=== PATIENT | female | born 1935 | race Caucasian/White ===

== ENCOUNTER 2016-06-01 09:21 | Inpatient (IN) | payer MEDICARE, OTHER ==
--- NOTE | 2016-06-01 09:28 | ED PDOC ---
HPI: General Adult Time Seen by Provider: 06/01/16 09:24 Chief Complaint (Provider): shortness of breath History Per: Patient History/Exam Limitations: no limitations Additional Complaint(s): 80yo female w/ Hx asthma, anxiety brought by ALS for complaint of shortness of breath for 3-4 days, worse this morning. No cough, or chills. States she smokes whenever she is stressed, which is more often recently. ALS administered Solumedrol 125mg in the field after noting patient was tachypneic with rhonchi and wheezing. Patient denies history of intubations. PMD: Noah Maguire Past Medical History Reviewed: Historical Data, Nursing Documentation, Vital Signs Vital Signs: Last Vital Signs Temp 100.3 F H 06/01/16 09:29 Pulse 116 H 06/01/16 11:50 Resp 23 06/01/16 09:40 BP 115/65 06/01/16 09:40 Pulse Ox 99 06/01/16 09:40 - Medical History PMH: Alzheimer's Disease (Per son, early, undiagnosed), Anxiety, Asthma, COPD, Dementia, Depression, Emphysema, Fractures (left shoulder 2 yrs ago), HTN, Pancreatitis Denies: Diabetes, Hepatitis, Chronic Kidney Disease, Seizures, Sexually Transmitted Disease - Surgical History Surgical History: Appendectomy - Family History Family History: States: Unknown Family Hx - Social History Current smoker - smoking cessation education provided: Yes (2-3 cigarettes daily ) - Immunization History Hx Tetanus Toxoid Vaccination: Yes (3 weeks [employer]) Hx Influenza Vaccination: No Hx Pneumococcal Vaccination: No - Home Medications Home Medications: Ambulatory Orders Medication Instructions Recorded ALPRAZolam [Xanax] 1 mg PO TID 06/01/16 Albuterol Sulfate [Proair Hfa] 2 puff IH Q6H PRN 06/01/16 Fluticasone/Salmeterol 100/50 1 puff IH Q12H 06/01/16 [Advair Diskus 100/50] Lansoprazole [Prevacid] 30 mg PO DAILY 06/01/16 - Allergies Allergies/Adverse Reactions: Allergies Allergy/AdvReac Type Severity Reaction Status Date / Time Penicillins Allergy SWELLING Verified 09/07/15 11:39 shrimp Allergy SWELLING Verified 09/07/15 11:39 Review of Systems ROS Statement: Except As Marked, All Systems Reviewed And Found Negative Constitutional: Positive for: Fever. Negative for: Chills Respiratory: Positive for: Shortness of Breath Physical Exam - Reviewed Nursing Documentation Reviewed: Yes Vital Signs Reviewed: Yes - Physical Exam Appears: Positive for: Well, Non-toxic, No Acute Distress Head Exam: Positive for: ATRAUMATIC, NORMAL INSPECTION, NORMOCEPHALIC Skin: Positive for: Warm, Dry Eye Exam: Positive for: EOMI, PERRL Cardiovascular/Chest: Positive for: Regular Rate, Rhythm Respiratory: Positive for: Rhonchi (diffuse), Wheezing (diffuse), Respiratory Distress (mild) Gastrointestinal/Abdominal: Positive for: Normal Exam, Soft. Negative for: Tenderness Extremity: Positive for: Normal ROM Neurologic/Psych: Positive for: Alert, Oriented - Laboratory Results Result Diagrams: 06/01/16 09:52 06/01/16 09:52 - Critical Care Total Time (In Min): 30 Documented Critical Care: Time excludes all time spent performint seperately billable procedures Medical Decision Making Medical Decision Makin: EKG, CXR, labs, duoneb, magnesium sulfate IV, reassess 1112 patient is still tachypneic, tachycardic and hypoxic. Pneumonia noted on CXR. Will place on BiPAP for 1 hour and reassess respiratory status. Paging ICU secondary to tachypea, hypoxia, sepsis criteria, pneumonia, elderly age. [address] Stubbs ICU who will evaluate the patient. 1152: Case discussed with Dr. Ordonez who agrees with placement of patient in ICU. Disposition - Clinical Impression Clinical Impression: Respiratory distress, COPD (chronic obstructive pulmonary disease), Pneumonia, Sepsis - Patient ED Disposition Is Patient to be Admitted: No - Disposition Disposition Time: 11:30 Condition: CRITICAL - Pt Status Changed To: Hospital Disposition Of: Inpatient - Admit Certification Admit to Inpatient:: After my assessment, the patient will require hospitalization for at least two midnights. This is because of the severity of symptoms shown, intensity of services needed, and/or the medical risk in this patient being treated as an outpatient. - POA Core Measure Indicators: Pneumonia Additional Comments - Additional Comments Additional Comments: Scribe Attestation: Documented by Julio Higgins acting as a scribe for Kareen Mixon MD Provider Scribe Attestation: All medical record entries made by the Scribe were at my direction and personally dictated by me. I have reviewed the chart and agree that the record accurately reflects my personal performance of the history, physical exam, medical decision making, and the department course for this patient. I have also personally directed, reviewed, and agree with the discharge instructions and disposition.
[2016-06-01 09:32] VITALS: BMI 18.8
[2016-06-01] MEDS ORDERED: Albuterol-Ipratrop 3 mg / 0.5 (3 ml) UD INH STA (09:32)
[2016-06-01] MEDS ORDERED: Magnesium Sulfate 2 GM in Sodium Chloride 0.9% 100 ML IV STA (09:32)
[2016-06-01] MEDS ORDERED: Albuterol-Ipratrop 3 mg / 0.5 (3 ml) UD ONE (09:42)
[2016-06-01 10:01] LABS: BASO # 0.1 K/uL (0.0-0.2); BASO % 0.4 % (0.0-2.0); EOS # 0.4 K/uL (0.0-0.7); HEMATOCRIT 40.4 % (34.0-47.0); LYMPH # 1.5 K/uL (1.0-4.3); LYMPH % 7.7 % (20.0-40.0); MEAN CORPUSCULAR HEMOGLOBIN 31.3 pg (27.0-31.0); MEAN CORPUSCULAR HGB CONC 32.8 g/dL (33.0-37.0); MEAN PLATELET VOLUME 7.4 fl (7.2-11.7); MONO # 2.7 K/uL (0.0-0.8); MONO % 13.9 % (0.0-10.0); NEUT # 14.7 K/uL (1.8-7.0); PLATELET COUNT 330 K/uL (130-400); RED CELL DISTRIBUTION WIDTH 14.5 % (11.5-14.5); WHITE BLOOD COUNT 19.4 K/uL (4.8-10.8)
[2016-06-01 10:02] LABS: MEAN CELL VOLUME 95.3 fl (81.0-99.0)
[2016-06-01 10:12] LABS: BLOOD UREA NITROGEN 17 mg/dl (7-17); CALCIUM 9.2 mg/dL (8.4-10.2); CARBON DIOXIDE 30 mmol/L (22-30); CHLORIDE 102 mmol/L (98-107); GFR AFRICAN-AMERICAN > 60; GLUCOSE,RANDOM 150 mg/dL (65-105); POTASSIUM 5.2 MMOL/L (3.6-5.0); SODIUM 138 mmol/l (132-148)
[2016-06-01] MEDS ORDERED: Azithromycin 500 MG in Sodium Chloride 0.9% 250 ML IVPB STA (10:55)
[2016-06-01] MEDS ORDERED: Sodium Chloride 0.9% 1,000 ML IV STA (10:56)
--- NOTE | 2016-06-01 11:29 | RAD ---
PROCEDURE: CHEST RADIOGRAPH, 1 VIEW HISTORY: hx of asthma, sob COMPARISON: 07/05/2015 FINDINGS: LUNGS: New opacity at right lung base. Possible pneumonia. No other abnormal opacity elsewhere. PLEURA: Small right pleural effusion. No left pleural effusion. No pneumothorax. CARDIOVASCULAR: Normal. OSSEOUS STRUCTURES: Status post ORIF mid right humeral fracture. VISUALIZED UPPER ABDOMEN: Normal. OTHER FINDINGS: None. IMPRESSION: New right basilar opacity suspicious for pneumonia. Small right pleural effusion.
[2016-06-01 11:41] LABS: VENOUS BLOOD GAS BASE EXCESS 6.9 mmol/L (0.0-2.0); VENOUS BLOOD GAS PCO2 76 mmHg (40-60); VENOUS BLOOD PH 7.27 (7.32-7.43)
[2016-06-01 12:49] LABS: ABG ALLEN TEST YES; ARTERIAL BLOOD GAS HCO3 24.8 mmol/L (21-28); ARTERIAL BLOOD GAS PH 7.23 (7.35-7.45); ARTERIAL BLOOD GAS PO2 86 mm/Hg (80-100)
[2016-06-01] MEDS ORDERED: Sodium Chloride 0.9% 1,000 ML IV SCH ×2 (13:00→18:45)
[2016-06-01] MEDS: cefTRIAXone 2 GM in Sodium Chloride 0.9% 100 ML IVPB SCH (13:03)
[2016-06-01 13:49] LABS: BASOPHIL 1 % (0-2); EOSINOPHIL 2 % (0-7); NEUTROPHIL 78 % (42-75); TOTAL CELLS COUNTED 100
--- NOTE | 2016-06-01 17:03 | CP.CCUPN ---
CCU Subjective - Physician Review Events Since Last Encounter (Free Text): 06/01/16 18:06 The Patient was seen and examined at the bedside, Medical records reviewed, all clinical/lab/hemodynamic/radiographic data were reviewed and management issues were discussed and formulated, Events reviewed Pain issues, skin care, head of the bed elevation, GI/DVT prophylaxis, glycemic control were addressed. 80 years old F with multiple medical conditions including HTN, Anxiety, Asthma, COPD/ Emphysema, Dementia, Depression, Fractures (left shoulder 2 yrs ago), Pancreatitis and Alzheimer's Disease (Per son, early, undiagnosed), Who was brought by ALS for complaint of shortness of breath for 3-4 days, that gor worse this morning. Pt in respiratory distress with rhonchi and wheezing on exAM, ALS administered Solumedrol 125mg in the field In the ER, she had fever of 100.3, Tylenol was given and was started on IV Rocephin/Zithromx Noted to have Rhonchi, Wheezing (diffuse), and in mild Respiratory Distress, so ICU consult was called, Admitted to ICU, currently on BIPAP, feeling better, afebrile CCU Objective - Vital Signs / Intake & Output Vital Signs (Last 4 hours): Vital Signs Temp Pulse Resp BP Pulse Ox 06/01/16 16:34 105 H 06/01/16 14:44 98.5 F 103 H 20 102/56 L 96 06/01/16 14:35 115 H 06/01/16 13:30 98.5 F 103 H 20 102/56 L 96 - Physical Exam Physical Exam Limitations: Positive for: Clinical Condition Head: Positive for: Atraumatic, Normocephalic Pupils: Positive for: PERRL Extroacular Muscles: Positive for: EOMI Conjunctiva: Positive for: Normal. Negative for: Injected, Icteric Mouth: Positive for: Moist Mucous Membranes Pharnyx: Positive for: Normal. Negative for: ERYTHEMA Nose (Internal): Positive for: Normal Inspection Neck: Positive for: Normal Range of Motion Respiratory/Chest: Positive for: Respiratory Distress (MILD), Wheezes (diffuse) , Decreased Breath Sounds, Rhonchi, Tachypneic. Negative for: Rales, Retracting Cardiovascular: Positive for: Regular Rate and Rhythm, Normal S1, S2, Peripheal Pulses Present. Negative for: Murmurs, Irregular Rhythm Upper Extremity: Positive for: Normal Inspection, NORMAL PULSES, Capillary Refill < 2s. Negative for: Cyanosis, Edema Lower Extremity: Positive for: Normal Inspection, NORMAL PULSES, Capillary Refill < 2 s. Negative for: Edema, CALF TENDERNESS Neurological: Positive for: GCS=15, CN II-XII Intact, Speech Normal, Motor Func Grossly Intact, Normal Sensory Function Psychiatric: Positive for: Alert - Medications Active Medications: Active Medications Generic Name Dose Route Start Last Admin Trade Name Arunq PRN Reason Stop Dose Admin Ceftriaxone Sodium 2 gm/ 100 mls @ 100 mls/hr 06/02/16 09:00 06/01/16 13:03 Sodium Chloride IVPB 100 mls/hr DAILY JABARI Administration Vancomycin HCl 1 gm/ Sodium 250 mls @ 166.667 mls/hr 06/01/16 16:00 06/01/16 16 :42 Chloride IVPB 06/01/16 17:29 166.667 mls/hr ONCE ONE Administration - Patient Studies Lab Studies: Lab Studies 06/01/16 Range/Units 12:40 pCO2 70 H (35-45) mm/Hg pO2 86 (80-100) mm/Hg HCO3 24.8 (21-28) mmol/L ABG pH 7.23 L (7.35-7.45) ABG Total CO2 31.4 H (22-28) mmol/L ABG O2 Saturation 97.6 (95-98) % ABG Base Excess -0.1 (-2.0-3.0) mmol/L Best Test Yes ABG Potassium 4.9 (3.6-5.2) mmol/L A-a O2 Difference 112.0 mm/Hg Sodium 137.0 (132-148) mmol/L Chloride 106.0 (98-107) mmol/L Glucose 247 H (65-105) mg/dL Lactate 2.6 H (0.7-2.1) mmol/L FiO2 40.0 % Arterial Blood Potassium 4.9 (3.6-5.2) mmol/L Laboratory Results - last 24 hr 06/01/16 12:40 pCO2 70 H pO2 86 HCO3 24.8 ABG pH 7.23 L ABG Total CO2 31.4 H ABG O2 Saturation 97.6 ABG Base Excess -0.1 Best Test Yes ABG Potassium 4.9 A-a O2 Difference 112.0 Sodium 137.0 Chloride 106.0 Glucose 247 H Lactate 2.6 H FiO2 40.0 Arterial Blood Potassium 4.9 Assessment/Plan (1) CAP (community acquired pneumonia) Current Visit: Yes Status: Acute (2) COPD (chronic obstructive pulmonary disease) with emphysema Current Visit: No Status: Acute (3) COPD (chronic obstructive pulmonary disease) with chronic bronchitis Current Visit: No Status: Chronic Comment: (4) Alzheimer's dementia Current Visit: No Status: Chronic (5) Prophylactic measure Current Visit: No Status: Acute Comment: Protonix 40mg daily Heparin 5000 units SC Q 12H - Assessment and Plan (Free Text) Assessment: - - Admitted to the ICU for hemodynamic and respiratory monitoring - Continue meds, reviewed - IV Antibiotics with Rocephin and Zithromax - Continue home meds: Spiriva 18mcg inh daily, Advair Diskus 1 puff INH bid and Singulair 10mg PO HS - Bronchodilator Nebs x4optvt - Aggressive Pulmonary toilets - IV fluids with 0.9% NS at 50cc /H - Strict Is & Os - Solumedrol 40mg IVP Q 12 hour - Singular 10mg POqHS - GI/DVT PPx
--- NOTE | 2016-06-01 19:46 | CARD ---
APPROVED REPORT EKG Measurement Heart [id number] <Conclusion> Sinus tachycardia with fusion complexes Otherwise normal ECG
[2016-06-01] MEDS: methylPREDNISolone 40 MG in Sodium Chloride 0.9% 50 ML IVPB SCH (21:15)
[2016-06-01] MEDS: Fluticasone-Salmeterol 250-50mcg Diskus IH SCH (21:18)
--- NOTE | 2016-06-01 23:11 | CP.PCM.HP ---
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 Patient was treated with Solu Medrol , Duo Neb , BIPAP and AD to ICU. Patient is seen in ICU of BIPAP on NC for eating,then will return to BIPAP Denies cough , hemoptysis , recent travel. Smoker 6 cigarretes day for 43 yrs , COPD for 4-5 yrs, Patient at home on DuoNeb , Oxigen, Allergic Rhinitis for 4-5 yrs. Present on Admission - Present on Admission Any Indicators Present on Admission: No Review of Systems - Constitutional Constitutional: Other (neg) - EENT Eyes: Other (neg) Ears: Other (neg) Nose/Mouth/Throat: Dry Mouth - Cardiovascular Cardiovascular: Other (neg) - Respiratory Respiratory: Dyspnea, Dyspnea on Exertion, Wheezing, Chest Congestion - Gastrointestinal Gastrointestinal: Other (neg) - Genitourinary Genitourinary: Other (neg) - Musculoskeletal Musculoskeletal: Other (neg) - Integumentary Integumentary: Other - Neurological Neurological: Other (neg) - Psychiatric Psychiatric: Other (neg) - Endocrine Endocrine: Other (neg) - Hematologic/Lymphatic Hematologic: Other (neg) Past Patient History - Infectious Disease Hx of Infectious Diseases: None - Tetanus Immunizations Tetanus Immunization: Unknown - Past Medical History & Family History Past Medical History?: Yes - Past Social History Smoking Status: Former Smoker Alcohol: None Home Situation {Lives}: Alone - CARDIAC Hx Cardiac Disorders: Yes Hx Hypertension: Yes - PULMONARY Hx Respiratory Disorders: Yes Hx Asthma: Yes Hx Chronic Obstructive Pulmonary Disease (COPD): Yes Hx Emphysema: Yes - NEUROLOGICAL Hx Neurological Disorder: Yes Hx Alzheimer's Disease: Yes (Per son, early, undiagnosed) Hx Dementia: Yes Hx Seizures: No - HEENT Hx HEENT Problems: Yes (Allergic Rhinitis) Other/Comment: to see far and close - RENAL Hx Chronic Kidney Disease: No - ENDOCRINE/METABOLIC Hx Endocrine Disorders: No - HEMATOLOGICAL/ONCOLOGICAL Hx AIDS: No Hx Human Immunodeficiency Virus (HIV): No - INTEGUMENTARY Hx Dermatological Problems: No - MUSCULOSKELETAL/RHEUMATOLOGICAL Hx Musculoskeletal Disorders: Yes Hx Falls: No Hx Fractures: Yes (ORIF R humeral) - GASTROINTESTINAL Hx Gastrointestinal Disorders: Yes Hx Pancreatitis: Yes - GENITOURINARY/GYNECOLOGICAL Hx Genitourinary Disorders: No Hx Sexually Transmitted Disorders: No - PSYCHIATRIC Hx Psychophysiologic Disorder: No Hx Substance Use: No - SURGICAL HISTORY Hx Surgeries: Yes Hx Appendectomy: Yes Hx Orthopedic Surgery: Yes (ORIF R Shoulder) - ANESTHESIA Hx Anesthesia: Yes Hx Anesthesia Reactions: No Hx Malignant Hyperthermia: No Has any member of the family had a problem w/ anesthesia?: No Meds Allergies/Adverse Reactions: Allergies Allergy/AdvReac Type Severity Reaction Status Date / Time Penicillins Allergy SWELLING Verified 09/07/15 11:39 shrimp Allergy SWELLING Verified 09/07/15 11:39 Physical Exam - Constitutional Appears: Chronically Ill - Head Exam Head Exam: NORMAL INSPECTION - Eye Exam Eye Exam: PERRL - ENT Exam ENT Exam: Mucous Membranes Dry - Neck Exam Neck exam: Positive for: Normal Inspection - Respiratory Exam Respiratory Exam: Decreased Breath Sounds, Rhonchi, Wheezes Additional comments: xyphosis - Cardiovascular Exam Cardiovascular Exam: REGULAR RHYTHM - GI/Abdominal Exam GI & Abdominal Exam: Normal Bowel Sounds, Soft - Extremities Exam Extremities exam: Positive for: normal inspection - Back Exam Back exam: NORMAL INSPECTION - Neurological Exam Neurological exam: Alert, Oriented x3 Additional comments: no motor /sensory deficit - Psychiatric Exam Psychiatric exam: Anxious - Skin Skin Exam: Warm Results - Vital Signs Recent Vital Signs: Last Vital Signs Temp 97.9 F 06/01/16 20:00 Pulse 93 H 06/01/16 22:00 Resp 19 06/01/16 22:00 BP 90/49 L 06/01/16 22:00 Pulse Ox 98 06/01/16 22:00 - Labs Result Diagrams: 06/01/16 09:52 06/01/16 09:52 Labs: Laboratory Results - last 24 hr 06/01/16 12:40 pCO2 70 H pO2 86 HCO3 24.8 ABG pH 7.23 L ABG Total CO2 31.4 H ABG O2 Saturation 97.6 ABG Base Excess -0.1 Best Test Yes ABG Potassium 4.9 A-a O2 Difference 112.0 Sodium 137.0 Chloride 106.0 Glucose 247 H Lactate 2.6 H FiO2 40.0 Arterial Blood Potassium 4.9 Assessment & Plan (1) CAP (community acquired pneumonia) Status: Acute (2) Respiratory distress Status: Acute (3) COPD exacerbation Status: Acute (4) Allergic rhinitis Status: Chronic Priority: Medium - Assessment and Plan (Free Text) Plan: Continue Zithromax , Rocephin, Duo Neb , Singulair and rest of treatment
[2016-06-01 23:28] LABS: RBC URINE 7 /hpf (0-3); URINE BILIRUBIN NEGATIVE (NEGATIVE); URINE BLOOD NEGATIVE (NEGATIVE); URINE COLOR YELLOW (YELLOW); URINE GLUCOSE (UA) NEG (Normal); URINE KETONE TRACE mg/dL (NEGATIVE); URINE LEUKOCYTE ESTERASE NEG Leu/uL (Negative); URINE PROTEIN 100 mg/dL (NEGATIVE); URINE UROBILINOGEN 0.2-1.0 mg/dL (0.2-1.0); WBC URINE 2 /hpf (0-5)
[2016-06-02] MEDS: Albuterol-Ipratrop 3 mg / 0.5 (3 ml) UD INH PRN (05:50)
[2016-06-02 06:15] LABS: ABG ALLEN TEST YES; ARTERIAL BLOOD GAS HCO3 26.6 mmol/L (21-28); ARTERIAL BLOOD GAS O2 CAPACITY 16.5 mL/dL (16-24); ARTERIAL BLOOD GAS O2 CONTENT 16.4 ML/dL (15-23); ARTERIAL BLOOD GAS PO2 126 mm/Hg (80-100); ARTERIAL BLOOD HGB O2 SAT 96.5 % (95.0-98.0); CARBOXYHEMOGLOBIN 1.6 % (0.5-1.5); HHB 0.9 % (0.0-5.0)
[2016-06-02 06:31] LABS: HEMATOCRIT 36.5 % (34.0-47.0); MEAN CELL VOLUME 96.9 fl (81.0-99.0); MEAN CORPUSCULAR HEMOGLOBIN 30.9 pg (27.0-31.0); MEAN CORPUSCULAR HGB CONC 31.9 g/dL (33.0-37.0); RED CELL DISTRIBUTION WIDTH 15.1 % (11.5-14.5); WHITE BLOOD COUNT 17.5 K/uL (4.8-10.8)
[2016-06-02 07:17] LABS: ALB/GLOB RATIO 1.1 (1.0-2.1); ALKALINE PHOSPHATASE 132 U/L (38-126); ALT/SGPT 29 U/L (9-52); AST/SGOT 23 U/L (14-36); BILIRUBIN,TOTAL 0.2 mg/dl (0.2-1.3); BLOOD UREA NITROGEN 20 mg/dl (7-17); CALCIUM 9.1 mg/dL (8.4-10.2); CARBON DIOXIDE 30 mmol/L (22-30); CHLORIDE 105 mmol/L (98-107); GFR AFRICAN-AMERICAN > 60; GLUCOSE,RANDOM 131 mg/dL (65-105); POTASSIUM 5.2 MMOL/L (3.6-5.0); SODIUM 140 mmol/l (132-148); TOTAL PROTEIN 6.9 G/DL (6.3-8.2)
[2016-06-02] MEDS: methylPREDNISolone 40 MG in Sodium Chloride 0.9% 50 ML IVPB SCH ×2 (08:28→21:13)
[2016-06-02] MEDS: Fluticasone-Salmeterol 250-50mcg Diskus IH SCH ×2 (08:29→21:12)
[2016-06-02] MEDS: Tiotropium 18 mcg Cap For Inhalation INH SCH (08:31)
[2016-06-02] MEDS: cefTRIAXone 2 GM in Sodium Chloride 0.9% 100 ML IVPB SCH (08:37)
[2016-06-02] MEDS ORDERED: cefTRIAXone 2 GM in Sodium Chloride 0.9% 100 ML IVPB SCH (09:00)
[2016-06-02] MEDS: Azithromycin 500 MG in Sodium Chloride 0.9% 250 ML IVPB SCH (09:06)
[2016-06-02 12:53] LABS: ARTERIAL BLOOD GAS PH 7.19 (7.35-7.45)
--- NOTE | 2016-06-02 14:22 | CP.CCUPN ---
CCU Subjective - Physician Review Events Since Last Encounter (Free Text): 06/02/16 The Patient was seen and examined at the bedside, Medical records reviewed, all clinical/lab/hemodynamic/radiographic data were reviewed and management issues were discussed and formulated, Events reviewed Pain issues, skin care, head of the bed elevation, GI/DVT prophylaxis, glycemic control were addressed. Mrs Lucas is 80 years old active smoker F with multiple medical conditions including HTN, Anxiety, Asthma, COPD/ Emphysema, Dementia, Depression, Fractures (left shoulder 2 yrs ago), Pancreatitis and Alzheimer's Disease (Per son, early, undiagnosed), Who was brought by ALS 06/01 for complaint of worsening shortness of breath for 3-4 days, that got worse that morning, so he called EMS. When EMS arrived, Pt in respiratory distress with rhonchi and wheezing on exam, ALS administered Solumedrol 125mg in the field In the ER, Patient received duoneb and magnesium sulfate IV, patient is still tachypneic, tachycardic and hypoxic. (RR 23, HHR 116) Noted to have Rhonchi, Wheezing (diffuse), and in mild Respiratory Distress, so ICU consult was called, Pt also had fever of 100.3, CXR showing Pneumonia, Tylenol was given and was started on Emperic Anx coverage with IV Rocephin/ Zithromx Admitted to ICU 06/01, continued BIPAP, Antibiotics Started on IV Soolumedrol and her home Pulmonary meds and inhaler restarted Pt feeling better today, afebrile since admission, less Dyspnea, minimal resp secretions On BIPAP I 12 E 6 rate 12 FIO2 40 %, O2 saturation 94 -96 %. Pt active smoker and today we placed nicotine patch Pt slightly confused and forgetful Pt currently on 1: observation for safety CCU Objective - Vital Signs / Intake & Output Vital Signs (Last 4 hours): Vital Signs Temp Pulse Resp BP Pulse Ox 06/02/16 14:00 101 H 27 H 107/58 L 97 06/02/16 13:00 102 H 26 H 97/58 L 92 L 06/02/16 12:00 97.5 F L 96 H 26 H 102/53 L 94 L 06/02/16 11:00 102 H 28 H 117/67 94 L Intake and Output (Last 8hrs): Intake & Output 06/01/16 06/02/1606/02/17 22:59 06:59 14:59 Intake Total [phone] Output Total 0 400 300 Balance 925 0 870 Intake: IV 875 400 50 Intake, Piggyback 50 400 Oral 0 720 Output: Urine 0 400 300 Urine, Voided 0 400 300 Other: # Voids Urine, Voided 1 - Physical Exam Head: Positive for: Atraumatic, Normocephalic Pupils: Positive for: PERRL Extroacular Muscles: Positive for: EOMI Conjunctiva: Positive for: Normal. Negative for: Injected, Icteric Mouth: Positive for: Moist Mucous Membranes Pharnyx: Positive for: Normal. Negative for: ERYTHEMA Nose (Internal): Positive for: Normal Inspection Neck: Positive for: Normal Range of Motion Respiratory/Chest: Positive for: Respiratory Distress (MILD), Wheezes (diffuse) , Decreased Breath Sounds, Rhonchi, Tachypneic. Negative for: Rales, Retracting Cardiovascular: Positive for: Regular Rate and Rhythm, Normal S1, S2, Peripheal Pulses Present. Negative for: Murmurs, Irregular Rhythm Upper Extremity: Positive for: Normal Inspection, NORMAL PULSES, Capillary Refill < 2s. Negative for: Cyanosis, Edema Lower Extremity: Positive for: Normal Inspection, NORMAL PULSES, Capillary Refill < 2 s. Negative for: Edema, CALF TENDERNESS Neurological: Positive for: GCS=15, CN II-XII Intact, Speech Normal, Motor Func Grossly Intact, Normal Sensory Function Psychiatric: Positive for: Alert (Slightly confused and forgetful) - Medications Active Medications: Active Medications Generic Name Dose Route Start Last Admin Trade Name Freq PRN Reason Stop Dose Admin Acetaminophen 650 mg 06/01/16 18:35 Tylenol 325mg Tab PO Q4 PRN Fever >100.4 F Albuterol/Ipratropium 3 ml 06/01/16 18:42 06/02/16 05:50 Duoneb 3 Mg/0.5 Mg (3 Ml) Ud INH 3 ml RQ6 PRN Administration Shortness of Breath Alprazolam 1 mg 06/01/16 23:05 06/02/16 02:08 Xanax PO 1 mg TID PRN Administration Anxiety Alprazolam 0.25 mg 06/02/16 08:54 06/02/16 11:19 Xanax PO 06/09/16 08:55 0.25 mg Q8 PRN Administration Anxiety Heparin Sodium (Porcine) 5,000 units 06/01/16 21:00 06/02/16 08:32 Heparin SC 5,000 units Q12 JABARI Administration Protocol Ceftriaxone Sodium 2 gm/ 100 mls @ 100 mls/hr 06/02/16 09:00 06/02/16 08:37 Sodium Chloride IVPB 100 mls/hr DAILY JABARI Administration Azithromycin 500 mg/ Sodium 250 mls @ 250 mls/hr 06/02/16 09:00 06/02/16 09:06 Chloride IVPB 250 mls/hr DAILY JABARI Administration Methylprednisolone 40 mg/ 50 mls @ 100 mls/hr 06/01/16 21:00 06/02/16 08:28 Sodium Chloride IVPB 100 mls/hr Q12 JABARI Administration Montelukast Sodium 10 mg 06/02/16 22:00 Singulair PO HS JABARI Nicotine 1 patch 06/02/16 09:00 06/02/16 11:14 Nicoderm Cq TD 1 patch DAILY JABARI Administration Fluticasone/Salmeterol 1 puff 06/01/16 21:00 06/02/16 08:29 Advair Diskus 250/50 IH 1 puff Q12 JABARI Administration Tiotropium [place] 18 mcg 06/02/16 09:00 06/02/16 08:31 Spiriva INH 18 mcg DAILY JABARI Administration - Patient Studies Lab Studies: Lab Studies 06/02/16 06/02/16 06/02/16 Range/Units 10:03 06:00 05:35 WBC 17.5 H (4.8-10.8) K/uL RBC 3.77 L (3.80-5.20) Mil/uL Hgb 11.6 L (12.0-16.0) g/dL Hct 36.5 (34.0-47.0) % MCV 96.9 (81.0-99.0) fl MCH 30.9 (27.0-31.0) pg MCHC 31.9 L (33.0-37.0) g/dL RDW 15.1 H (11.5-14.5) % Plt Count 326 (130-400) K/uL APTT 32.1 (23.3-32.5) SECONDS pCO2 85 H* (35-45) mm/Hg pO2 126 H (80-100) mm/Hg HCO3 26.6 (21-28) mmol/L ABG pH 7.19 L* (7.35-7.45) ABG Total CO2 35.1 H (22-28) mmol/L ABG O2 Saturation 99.1 H (95-98) % ABG O2 Content 16.4 (15-23) ML/dL ABG Base Excess 2.1 (-2.0-3.0) mmol/L ABG Hemoglobin 11.9 (11.7-17.4) g/dL ABG Carboxyhemoglobin 1.6 H (0.5-1.5) % POC ABG HHb (Measured) 0.9 (0.0-5.0) % ABG Methemoglobin 1.0 (0.0-3.0) % ABG O2 Capacity 16.5 (16-24) mL/dL Best Test Yes A-a O2 Difference 81.0 mm/Hg Hgb O2 Saturation 96.5 (95.0-98.0) % FiO2 44.0 % Crit Value Called To Ana staton rn Crit Value Called By 302 Crit Value Read Back Y Blood Gas Notified Time 614 Sodium 140 (132-148) mmol/l Potassium 5.2 H (3.6-5.0) MMOL/L Chloride 105 (98-107) mmol/L Carbon Dioxide 30 (22-30) mmol/L Anion Gap 10 (10-20) BUN 20 H (7-17) mg/dl Creatinine 0.5 L (0.7-1.2) mg/dL Est GFR ( Amer) > 60 Est GFR (Non-Af Amer) > 60 Random Glucose 131 H (65-105) mg/dL Calcium 9.1 (8.4-10.2) mg/dL Total Bilirubin 0.2 (0.2-1.3) mg/dl AST 23 (14-36) U/L ALT 29 (9-52) U/L Alkaline Phosphatase 132 H D (38-126) U/L Total Protein 6.9 (6.3-8.2) G/DL Albumin 3.5 (3.5-5.0) g/dL Globulin 3.4 (2.2-3.9) gm/dL Albumin/Globulin Ratio 1.1 (1.0-2.1) Urine Color (YELLOW) Urine Clarity (Clear) Urine pH (5.0-8.0) Ur Specific [place] (1.003-1.030) Urine Protein (NEGATIVE) mg/dL Urine Glucose (UA) (Normal) mg/dL Urine Ketones (NEGATIVE) mg/dL Urine Blood (NEGATIVE) Urine Nitrate (NEGATIVE) Urine Bilirubin (NEGATIVE) Urine Urobilinogen (0.2-1.0) mg/dL Ur Leukocyte Esterase (Negative) Randa/uL Urine RBC (Auto) (0-3) /hpf Urine Microscopic WBC (0-5) /hpf Ur Squamous Epith Cells (0-5) /hpf Hyaline Casts (0-2) /hpf 06/01/16 Range/Units 23:00 WBC (4.8-10.8) K/uL RBC (3.80-5.20) Mil/uL Hgb (12.0-16.0) g/dL Hct (34.0-47.0) % MCV (81.0-99.0) fl MCH (27.0-31.0) pg MCHC (33.0-37.0) g/dL RDW (11.5-14.5) % Plt Count (130-400) K/uL APTT (23.3-32.5) SECONDS pCO2 (35-45) mm/Hg pO2 (80-100) mm/Hg HCO3 (21-28) mmol/L ABG pH (7.35-7.45) ABG Total CO2 (22-28) mmol/L ABG O2 Saturation (95-98) % ABG O2 Content (15-23) ML/dL ABG Base Excess (-2.0-3.0) mmol/L ABG Hemoglobin (11.7-17.4) g/dL ABG Carboxyhemoglobin (0.5-1.5) % POC ABG HHb (Measured) (0.0-5.0) % ABG Methemoglobin (0.0-3.0) % ABG O2 Capacity (16-24) mL/dL Best Test A-a O2 Difference mm/Hg Hgb O2 Saturation (95.0-98.0) % FiO2 % Crit Value Called To Crit Value Called By Crit Value Read Back Blood Gas Notified Time Sodium (132-148) mmol/l Potassium (3.6-5.0) MMOL/L Chloride (98-107) mmol/L Carbon Dioxide (22-30) mmol/L Anion Gap (10-20) BUN (7-17) mg/dl Creatinine (0.7-1.2) mg/dL Est GFR ( Amer) Est GFR (Non-Af Amer) Random Glucose (65-105) mg/dL Calcium (8.4-10.2) mg/dL Total Bilirubin (0.2-1.3) mg/dl AST (14-36) U/L ALT (9-52) U/L Alkaline Phosphatase (38-126) U/L Total Protein (6.3-8.2) G/DL Albumin (3.5-5.0) g/dL Globulin (2.2-3.9) gm/dL Albumin/Globulin Ratio (1.0-2.1) Urine Color Yellow (YELLOW) Urine Clarity Slighty-cloudy (Clear) Urine pH 5.0 (5.0-8.0) Ur Specific [place] 1.025 (1.003-1.030) Urine Protein 100 (NEGATIVE) mg/dL Urine Glucose (UA) Neg (Normal) mg/dL Urine Ketones Trace (NEGATIVE) mg/dL Urine Blood Negative (NEGATIVE) Urine Nitrate Negative (NEGATIVE) Urine Bilirubin Negative (NEGATIVE) Urine Urobilinogen 0.2-1.0 (0.2-1.0) mg/dL Ur Leukocyte Esterase Neg (Negative) Randa/uL Urine RBC (Auto) 7 H (0-3) /hpf Urine Microscopic WBC 2 (0-5) /hpf Ur Squamous Epith Cells 3 (0-5) /hpf Hyaline Casts 3-5 H (0-2) /hpf Laboratory Results - last 24 hr 06/01/16 06/02/16 06/02/16 23:00 05:35 06:00 WBC 17.5 H RBC 3.77 L Hgb 11.6 L Hct 36.5 MCV 96.9 MCH 30.9 MCHC 31.9 L RDW 15.1 H Plt Count 326 APTT pCO2 85 H* pO2 126 H HCO3 26.6 ABG pH 7.19 L* ABG Total CO2 35.1 H ABG O2 Saturation 99.1 H ABG O2 Content 16.4 ABG Base Excess 2.1 ABG Hemoglobin 11.9 ABG Carboxyhemoglobin 1.6 H POC ABG HHb (Measured) 0.9 ABG Methemoglobin 1.0 ABG O2 Capacity 16.5 Best Test Yes A-a O2 Difference 81.0 Hgb O2 Saturation 96.5 FiO2 44.0 Crit Value Called To Ana staton rn Crit Value Called By 302 Crit Value Read Back Y Blood Gas Notified Time 614 Sodium 140 Potassium 5.2 H Chloride 105 Carbon Dioxide 30 Anion Gap 10 BUN 20 H Creatinine 0.5 L Est GFR ( Amer) > 60 Est GFR (Non-Af Amer) > 60 Random Glucose 131 H Calcium 9.1 Total Bilirubin 0.2 AST 23 ALT 29 Alkaline Phosphatase 132 H D Total Protein 6.9 Albumin 3.5 Globulin 3.4 Albumin/Globulin Ratio 1.1 Urine Color Yellow Urine Clarity Slighty-cloudy Urine pH 5.0 Ur Specific [place] 1.025 Urine Protein 100 Urine Glucose (UA) Neg Urine Ketones Trace Urine Blood Negative Urine Nitrate Negative Urine Bilirubin Negative Urine Urobilinogen 0.2-1.0 Ur Leukocyte Esterase Neg Urine RBC (Auto) 7 H Urine Microscopic WBC 2 Ur Squamous Epith Cells 3 Hyaline Casts 3-5 H 06/02/16 10:03 WBC RBC Hgb Hct MCV MCH MCHC RDW Plt Count APTT 32.1 pCO2 pO2 HCO3 ABG pH ABG Total CO2 ABG O2 Saturation ABG O2 Content ABG Base Excess ABG Hemoglobin ABG Carboxyhemoglobin POC ABG HHb (Measured) ABG Methemoglobin ABG O2 Capacity Best Test A-a O2 Difference Hgb O2 Saturation FiO2 Crit Value Called To Crit Value Called By Crit Value Read Back Blood Gas Notified Time Sodium Potassium Chloride Carbon Dioxide Anion Gap BUN Creatinine Est GFR ( Amer) Est GFR (Non-Af Amer) Random Glucose Calcium Total Bilirubin AST ALT Alkaline Phosphatase Total Protein Albumin Globulin Albumin/Globulin Ratio Urine Color Urine Clarity Urine pH Ur Specific [place] Urine Protein Urine Glucose (UA) Urine Ketones Urine Blood Urine Nitrate Urine Bilirubin Urine Urobilinogen Ur Leukocyte Esterase Urine RBC (Auto) Urine Microscopic WBC Ur Squamous Epith Cells Hyaline Casts Critical Care Progress Note - Extremities/Vascular Does the Patient have a Central Venous Catheter?: No Does the Patient need a Central Venous Catheter?: No Does the Patient have a Nesbitt Catheter?: No Does the Patient need a Nesbitt Catheter?: No - Nutrition Nutrition: Nutrition Category Date Time Status Heart Healthy Diet [DIET] Diets 06/01/16 Breakfast Active Assessment/Plan (1) CAP (community acquired pneumonia) Current Visit: Yes Status: Acute (2) COPD (chronic obstructive pulmonary disease) with emphysema Current Visit: No Status: Acute (3) COPD (chronic obstructive pulmonary disease) with chronic bronchitis Current Visit: No Status: Chronic Comment: (4) Alzheimer's dementia Current Visit: No Status: Chronic (5) Prophylactic measure Current Visit: No Status: Acute Comment: Protonix 40mg daily Heparin 5000 units SC Q 12H - Assessment and Plan (Free Text) Assessment: - Admitted to the ICU for hemodynamic and respiratory monitoring - Continue meds, reviewed - IV Antibiotics with Rocephin and Zithromax for community acquired coverage - Follow up cultures, Blood C/S NTD - Continue home meds: Spiriva 18mcg inh daily, Advair Diskus 1 puff INH bid and Singulair 10mg PO HS - Bronchodilator Nebs [id number] - Aggressive Pulmonary toilets - IV fluids with 0.9% NS at 50cc /H - Strict Is & Os - Solumedrol 40mg IVP Q 12 hour - Singular 10mg POqHS - Pt active smoker and today we placed nicotine patch - GI/DVT PPx - Protonix 40mg daily - Heparin 5000 units SC Q 12H - Continue with 1: observation for safety
[2016-06-02] MEDS ORDERED: Oxycodone/Acetaminophen 5/325 mg Tab PO ONE (18:35)
[2016-06-03] MEDS: guaiFENesin 100 mg/5 ml Syrup UD PO PRN ×2 (03:06→18:21)
[2016-06-03 06:38] LABS: HEMATOCRIT 35.3 % (34.0-47.0); MEAN CELL VOLUME 95.6 fl (81.0-99.0); MEAN CORPUSCULAR HGB CONC 32.4 g/dL (33.0-37.0); RED CELL DISTRIBUTION WIDTH 14.7 % (11.5-14.5); WHITE BLOOD COUNT 15.7 K/uL (4.8-10.8)
[2016-06-03 06:52] LABS: BLOOD UREA NITROGEN 22 mg/dl (7-17); CALCIUM 8.8 mg/dL (8.4-10.2); CARBON DIOXIDE 35 mmol/L (22-30); CHLORIDE 103 mmol/L (98-107); GFR AFRICAN-AMERICAN > 60; GLUCOSE,RANDOM 125 mg/dL (65-105); SODIUM 146 mmol/l (132-148)
[2016-06-03] MEDS: Fluticasone-Salmeterol 250-50mcg Diskus IH SCH ×2 (08:13→21:15)
[2016-06-03] MEDS: Tiotropium 18 mcg Cap For Inhalation INH SCH (08:14)
[2016-06-03] MEDS: methylPREDNISolone 40 MG in Sodium Chloride 0.9% 50 ML IVPB SCH ×2 (08:15→21:16)
[2016-06-03] MEDS: Azithromycin 500 MG in Sodium Chloride 0.9% 250 ML IVPB SCH (08:58)
--- NOTE | 2016-06-03 13:01 | CP.PCM.PN ---
Subjective - Date & Time of Evaluation Date of Evaluation: 06/03/16 - Subjective Subjective: F/U CAP Breathing better , anxious Objective - Vital Signs/Intake and Output Vital Signs (last 24 hours): Temp Pulse Resp BP Pulse Ox 97.7 F 97 H 23 146/80 89 L 06/03/16 12:00 06/03/16 12:00 06/03/16 12:00 06/03/16 12:00 06/03/16 12:00 Intake and Output: 06/03/16 06/03/16 06:59 18:59 Intake Total 300 880 Output Total 1000 300 Balance -700 580 - Medications Medications: Current Medications Acetaminophen (Tylenol 325mg Tab) 650 mg PO Q4 PRN PRN Reason: Fever >100.4 F Last Admin: 06/02/16 15:56 Dose: 650 mg Albuterol/Ipratropium (Duoneb 3 Mg/0.5 Mg (3 Ml) Ud) 3 ml INH RQ6 PRN PRN Reason: Shortness of Breath Last Admin: 06/02/16 05:50 Dose: 3 ml Alprazolam (Xanax) 0.25 mg PO Q8 PRN PRN Reason: Anxiety Stop: 06/09/16 08:55 Last Admin: 06/03/16 08:13 Dose: 0.25 mg Enoxaparin Sodium (Lovenox) 40 mg SC DAILY JABARI PRN Reason: Protocol Guaifenesin (Robitussin) 100 mg PO Q4 PRN PRN Reason: Cough Last Admin: 06/03/16 03:06 Dose: 100 mg Azithromycin 500 mg/ Sodium (Chloride) 250 mls @ 250 mls/hr IVPB DAILY [facility] Last Admin: 06/03/16 08:58 Dose: 250 mls/hr Methylprednisolone 40 mg/ (Sodium Chloride) 50 mls @ 100 mls/hr IVPB Q12 JABARI Last Admin: 06/03/16 08:15 Dose: 100 mls/hr Ceftriaxone Sodium 1 gm/ (Sodium Chloride) 100 mls @ 100 mls/hr IVPB DAILY [facility] Last Admin: 06/03/16 09:36 Dose: 100 mls/hr Montelukast Sodium (Singulair) 10 mg PO HS [facility] Last Admin: 06/02/16 21:12 Dose: 10 mg Nicotine (Nicoderm Cq) 1 patch TD DAILY [facility] Last Admin: 06/03/16 08:16 Dose: 1 patch Fluticasone/Salmeterol (Advair Diskus 250/50) 1 puff IH Q12 [facility] Last Admin: 06/03/16 08:13 Dose: 1 puff - Labs Labs: 06/03/16 06:15 06/03/16 06:15 APTT 32.1 SECONDS (23.3-32.5) 06/02/16 10:03 - Constitutional Appears: Chronically Ill - Head Exam Head Exam: NORMAL INSPECTION - Eye Exam Eye Exam: PERRL - ENT Exam ENT Exam: Mucous Membranes Moist - Neck Exam Neck Exam: Normal Inspection - Respiratory Exam Respiratory Exam: Decreased Breath Sounds, Rhonchi (scattered), Wheezes Additional comments: Xyphosis - Cardiovascular Exam Cardiovascular Exam: REGULAR RHYTHM - GI/Abdominal Exam GI & Abdominal Exam: Soft, Normal Bowel Sounds - Extremities Exam Extremities Exam: Normal Inspection - Back Exam Back Exam: NORMAL INSPECTION - Neurological Exam Neurological Exam: Oriented x3. absent: Motor Sensory Deficit - Psychiatric Exam Psychiatric exam: Anxious - Skin Skin Exam: Warm Assessment and Plan (1) CAP (community acquired pneumonia) Status: Acute (2) Respiratory distress Status: Resolved (3) COPD exacerbation Status: Acute (4) Allergic rhinitis Status: Chronic - Assessment and Plan (Free Text) Plan: Discussed with Patient , She agrees to stay in the Hospital, transfer to Med/ Surg ,continue Rocephin, Zithromax and rest of treatment
[2016-06-03] MEDS: Enoxaparin 40 mg Syringe SC SCH (13:26)
--- NOTE | 2016-06-03 15:41 | CP.CCUPN ---
CCU Subjective - Physician Review Events Since Last Encounter (Free Text): 06/03/16 15:41 Patient seen and examined in the morning. Agitated, very talkative, wants to get out of bed. pe: bp 123/62 mmhg, hr 90 bpm, rr 19 bpm, t 97.5, O2 95% on 3 L of NC aaox3 s1, s2 rrr lungs good bilateral air of entry abdomen soft, non tender able to move extremities, some weakness, not very steady a/p: Respiratory failure much improved. OK for transfer to the floor. CCU Objective - Vital Signs / Intake & Output Vital Signs (Last 4 hours): Vital Signs Temp Pulse Resp BP Pulse Ox 06/03/16 13:00 100 H 24 165/68 H 98 06/03/16 12:00 97.7 F 97 H 23 146/80 89 L Intake and Output (Last 8hrs): Intake & Output 06/03/16 06/03/16 06/03/16 06:59 14:59 22:59 Intake Total 1240 Output Total 700 700 Balance -700 540 Intake: Intake, Piggyback 400 Oral 840 Output: Urine 700 700 Urine, Voided 700 700 - Physical Exam Head: Positive for: Atraumatic, Normocephalic Pupils: Positive for: PERRL Extroacular Muscles: Positive for: EOMI Conjunctiva: Positive for: Normal. Negative for: Injected, Icteric Mouth: Positive for: Moist Mucous Membranes Pharnyx: Positive for: Normal. Negative for: ERYTHEMA Nose (Internal): Positive for: Normal Inspection Neck: Positive for: Normal Range of Motion Respiratory/Chest: Positive for: Respiratory Distress (MILD), Wheezes (diffuse) , Decreased Breath Sounds, Rhonchi, Tachypneic. Negative for: Rales, Retracting Cardiovascular: Positive for: Regular Rate and Rhythm, Normal S1, S2, Peripheal Pulses Present. Negative for: Murmurs, Irregular Rhythm Upper Extremity: Positive for: Normal Inspection, NORMAL PULSES, Capillary Refill < 2s. Negative for: Cyanosis, Edema Lower Extremity: Positive for: Normal Inspection, NORMAL PULSES, Capillary Refill < 2 s. Negative for: Edema, CALF TENDERNESS Neurological: Positive for: GCS=15, CN II-XII Intact, Speech Normal, Motor Func Grossly Intact, Normal Sensory Function Psychiatric: Positive for: Alert (Slightly confused and forgetful) - Medications Active Medications: Active Medications Generic Name Dose Route Start Last Admin Trade Name Freq PRN Reason Stop Dose Admin Acetaminophen 650 mg 06/01/16 18:35 06/02/16 15:56 Tylenol 325mg Tab PO 650 mg Q4 PRN Administration Fever >100.4 F Albuterol/Ipratropium 3 ml 06/01/16 18:42 06/02/16 05:50 Duoneb 3 Mg/0.5 Mg (3 Ml) Ud INH 3 ml RQ6 PRN Administration Shortness of Breath Alprazolam 0.25 mg 06/02/16 08:54 06/03/16 08:13 Xanax PO 06/09/16 08:55 0.25 mg Q8 PRN Administration Anxiety Enoxaparin Sodium 40 mg 06/03/16 09:00 06/03/16 13:26 Lovenox SC 40 mg DAILY JABARI Administration Protocol Guaifenesin 100 mg 06/03/16 02:48 06/03/16 03:06 Robitussin PO 100 mg Q4 PRN Administration Cough Azithromycin 500 mg/ Sodium 250 mls @ 250 mls/hr 06/02/16 09:00 06/03/16 08:58 Chloride IVPB 250 mls/hr DAILY JABARI Administration Methylprednisolone 40 mg/ 50 mls @ 100 mls/hr 06/01/16 21:00 06/03/16 08:15 Sodium Chloride IVPB 100 mls/hr Q12 JABARI Administration Ceftriaxone Sodium 1 gm/ 100 mls @ 100 mls/hr 06/03/16 09:00 06/03/16 09:36 Sodium Chloride IVPB 100 mls/hr DAILY JABARI Administration Montelukast Sodium 10 mg 06/02/16 22:00 06/02/16 21:12 Singulair PO 10 mg HS JABARI Administration Nicotine 1 patch 06/02/16 09:00 06/03/16 08:16 Nicoderm Cq TD 1 patch DAILY JABARI Administration Fluticasone/Salmeterol 1 puff 06/01/16 21:00 06/03/16 08:13 Advair Diskus 250/50 IH 1 puff Q12 JABARI Administration - Patient Studies Lab Studies: Lab Studies 06/03/16 Range/Units 06:15 WBC 15.7 H (4.8-10.8) K/uL RBC 3.70 L (3.80-5.20) Mil/uL Hgb 11.5 L (12.0-16.0) g/dL Hct 35.3 (34.0-47.0) % MCV 95.6 (81.0-99.0) fl MCH 31.0 (27.0-31.0) pg MCHC 32.4 L (33.0-37.0) g/dL RDW 14.7 H (11.5-14.5) % Plt Count 347 (130-400) K/uL Sodium 146 (132-148) mmol/l Potassium 5.0 (3.6-5.0) MMOL/L Chloride 103 (98-107) mmol/L Carbon Dioxide 35 H (22-30) mmol/L Anion Gap 13 (10-20) BUN 22 H (7-17) mg/dl Creatinine 0.6 L (0.7-1.2) mg/dL Est GFR ( Amer) > 60 Est GFR (Non-Af Amer) > 60 Random Glucose 125 H (65-105) mg/dL Calcium 8.8 (8.4-10.2) mg/dL Laboratory Results - last 24 hr 06/03/16 06:15 WBC 15.7 H RBC 3.70 L Hgb 11.5 L Hct 35.3 MCV 95.6 MCH 31.0 MCHC 32.4 L RDW 14.7 H Plt Count 347 Sodium 146 Potassium 5.0 Chloride 103 Carbon Dioxide 35 H Anion Gap 13 BUN 22 H Creatinine 0.6 L Est GFR ( Amer) > 60 Est GFR (Non-Af Amer) > 60 Random Glucose 125 H Calcium 8.8 Critical Care Progress Note - Nutrition Nutrition: Nutrition Category Date Time Status Heart Healthy Diet [DIET] Diets 06/01/16 Breakfast Active
[2016-06-03] MEDS: Albuterol-Ipratrop 3 mg / 0.5 (3 ml) UD INH PRN (19:16)
[2016-06-03 20:34] VITALS: RESP 20
[2016-06-04] MEDS: guaiFENesin 100 mg/5 ml Syrup UD PO PRN ×3 (04:14→21:45)
[2016-06-04] MEDS: Azithromycin 500 MG in Sodium Chloride 0.9% 250 ML IVPB SCH (08:48)
[2016-06-04] MEDS: methylPREDNISolone 40 MG in Sodium Chloride 0.9% 50 ML IVPB SCH ×2 (08:49→20:46)
[2016-06-04] MEDS: Enoxaparin 40 mg Syringe SC SCH (08:51)
[2016-06-04] MEDS: Fluticasone-Salmeterol 250-50mcg Diskus IH SCH ×2 (08:52→20:47)
--- NOTE | 2016-06-04 14:17 | RAD ---
HISTORY: PNA COMPARISON: 06/01/2016 TECHNIQUE: Chest PA and lateral FINDINGS: LUNGS: There is pulmonary hyperinflation and peribronchial thickening with chronic changes in both lungs. PLEURA: No significant pleural effusion identified. No pneumothorax apparent. CARDIOVASCULAR: The heart is normal in size. OSSEOUS STRUCTURES: There is diffuse bone demineralization and multilevel degenerative changes in the spine. Status post ORIF right mid humeral fracture. VISUALIZED UPPER ABDOMEN: Normal. OTHER FINDINGS: None. IMPRESSION: COPD. No acute findings.
--- NOTE | 2016-06-04 15:06 | CP.PCM.PN ---
Subjective - Date & Time of Evaluation Date of Evaluation: 06/04/16 - Subjective Subjective: F/U CAP Pt is calm, breathing better, minimal cough, less chest congestion. Objective - Vital Signs/Intake and Output Vital Signs (last 24 hours): Temp Pulse Resp BP Pulse Ox 97.9 F 96 H 20 146/73 89 L 06/04/16 08:07 06/04/16 10:00 06/04/16 08:07 06/04/16 10:00 06/04/16 08:07 - Medications Medications: Current Medications Acetaminophen (Tylenol 325mg Tab) 650 mg PO Q4 PRN PRN Reason: Fever >100.4 F Last Admin: 06/02/16 15:56 Dose: 650 mg Albuterol/Ipratropium (Duoneb 3 Mg/0.5 Mg (3 Ml) Ud) 3 ml INH RQ6 PRN PRN Reason: Shortness of Breath Last Admin: 06/03/16 19:16 Dose: 3 ml Alprazolam (Xanax) 0.25 mg PO Q8 PRN PRN Reason: Anxiety Stop: 06/09/16 08:55 Last Admin: 06/03/16 15:46 Dose: 0.25 mg Alprazolam (Xanax) 1 mg PO TID PRN PRN Reason: Anxiety - HIGHER LEVELS Last Admin: 06/04/16 08:48 Dose: 1 mg Enoxaparin Sodium (Lovenox) 40 mg SC DAILY JABARI PRN Reason: Protocol Last Admin: 06/04/16 08:51 Dose: 40 mg Guaifenesin (Robitussin) 100 mg PO Q4 PRN PRN Reason: Cough Last Admin: 06/04/16 09:06 Dose: 100 mg Azithromycin 500 mg/ Sodium (Chloride) 250 mls @ 250 mls/hr IVPB DAILY [facility] Last Admin: 06/04/16 08:48 Dose: 250 mls/hr Methylprednisolone 40 mg/ (Sodium Chloride) 50 mls @ 100 mls/hr IVPB Q12 JABARI Last Admin: 06/04/16 08:49 Dose: 100 mls/hr Ceftriaxone Sodium 1 gm/ (Sodium Chloride) 100 mls @ 100 mls/hr IVPB DAILY [facility] Last Admin: 06/04/16 08:55 Dose: 100 mls/hr Montelukast Sodium (Singulair) 10 mg PO HS [facility] Last Admin: 06/03/16 21:21 Dose: 10 mg Nicotine (Nicoderm Cq) 1 patch TD DAILY [facility] Last Admin: 06/04/16 08:52 Dose: 1 patch Fluticasone/Salmeterol (Advair Diskus 250/50) 1 puff IH Q12 [facility] Last Admin: 06/04/16 08:52 Dose: 1 puff - Labs Labs: 06/03/16 06:15 06/03/16 06:15 APTT 32.1 SECONDS (23.3-32.5) 06/02/16 10:03 - Constitutional Appears: No Acute Distress, Chronically Ill - Head Exam Head Exam: NORMAL INSPECTION - Eye Exam Eye Exam: PERRL - ENT Exam ENT Exam: Mucous Membranes Moist - Neck Exam Neck Exam: Normal Inspection - Respiratory Exam Respiratory Exam: Decreased Breath Sounds, Rhonchi (scattered ), Wheezes Additional comments: Xyphosis - Cardiovascular Exam Cardiovascular Exam: REGULAR RHYTHM - GI/Abdominal Exam GI & Abdominal Exam: Soft, Normal Bowel Sounds - Extremities Exam Extremities Exam: Normal Inspection - Back Exam Back Exam: NORMAL INSPECTION - Neurological Exam Neurological Exam: Alert, Oriented x3. absent: Motor Sensory Deficit - Psychiatric Exam Psychiatric exam: Anxious - Skin Skin Exam: Warm Assessment and Plan (1) CAP (community acquired pneumonia) Status: Acute (2) COPD exacerbation Status: Acute (3) Allergic rhinitis Status: Chronic - Assessment and Plan (Free Text) Plan: continue Zthromax, Duoneb, Solumedrol. Robitusin and rest of Tx.. CXR PA & Lateral today.
[2016-06-05] MEDS: guaiFENesin 100 mg/5 ml Syrup UD PO PRN (04:57)
[2016-06-05 07:09] LABS: HEMATOCRIT 40.8 % (34.0-47.0); MEAN CELL VOLUME 93.3 fl (81.0-99.0); MEAN CORPUSCULAR HEMOGLOBIN 31.4 pg (27.0-31.0); MEAN CORPUSCULAR HGB CONC 33.7 g/dL (33.0-37.0); RED CELL DISTRIBUTION WIDTH 14.3 % (11.5-14.5)
[2016-06-05 07:32] LABS: BLOOD UREA NITROGEN 20 mg/dl (7-17); CARBON DIOXIDE 33 mmol/L (22-30); CHLORIDE 99 mmol/L (98-107); GFR AFRICAN-AMERICAN > 60; GLUCOSE,RANDOM 102 mg/dL (65-105); POTASSIUM 4.4 MMOL/L (3.6-5.0); SODIUM 139 mmol/l (132-148)
[2016-06-05 08:09] VITALS: BP 160/88; PULSE 89; TEMP 97.8; O2SAT 96
[2016-06-05] MEDS: methylPREDNISolone 40 MG in Sodium Chloride 0.9% 50 ML IVPB SCH (08:22)
[2016-06-05] MEDS: Fluticasone-Salmeterol 250-50mcg Diskus IH SCH (08:26)
[2016-06-05] MEDS: Azithromycin 500 MG in Sodium Chloride 0.9% 250 ML IVPB SCH (08:28)
[2016-06-05] MEDS: Enoxaparin 40 mg Syringe SC SCH (08:29)
--- NOTE | 2016-06-05 17:58 | CP.PCM.PN ---
Subjective - Date & Time of Evaluation Date of Evaluation: 06/05/16 - Subjective Subjective: F/U CAP Pt breathing well, no SOB. Objective - Vital Signs/Intake and Output Vital Signs (last 24 hours): Temp Pulse Resp BP Pulse Ox 97.8 F 89 20 160/88 H 96 06/05/16 08:09 06/05/16 08:09 06/05/16 08:09 06/05/16 08:09 06/05/16 08:09 - Labs Labs: 06/05/16 06:30 06/05/16 06:30 APTT 32.1 SECONDS (23.3-32.5) 06/02/16 10:03 - Constitutional Appears: No Acute Distress, Chronically Ill - Head Exam Head Exam: NORMAL INSPECTION - Eye Exam Eye Exam: PERRL - ENT Exam ENT Exam: Normal Oropharynx - Neck Exam Neck Exam: Normal Inspection - Respiratory Exam Respiratory Exam: Decreased Breath Sounds (at bases) - Cardiovascular Exam Cardiovascular Exam: REGULAR RHYTHM - GI/Abdominal Exam GI & Abdominal Exam: Normal Bowel Sounds - Extremities Exam Extremities Exam: Normal Inspection - Back Exam Back Exam: NORMAL INSPECTION - Neurological Exam Neurological Exam: Alert, Oriented x3. absent: Motor Sensory Deficit - Psychiatric Exam Psychiatric exam: Anxious - Skin Skin Exam: Warm Assessment and Plan (1) CAP (community acquired pneumonia) Assessment & Plan: Improved Status: Acute (2) Respiratory distress Assessment & Plan: Improved Status: Resolved (3) COPD exacerbation Status: Acute (4) Allergic rhinitis Status: Chronic - Assessment and Plan (Free Text) Plan: CXR no infiltrate, resolving PNA, Clear for discharge, see instruction medication sheet, continue Zithromax x 6 more days, taper Prednisone, Pt has O2 and Duoneb at home.
--- NOTE | 2016-06-10 12:27 | PQF SEPSIS ---
This form is a permanent part of the medical record Clarification of your documentation is requested to better reflect the severity of illness and intensity of treatment of your patient. Indicators present [] Temp < 96.8 or > 100.4 [] WBC count > 12,000/mm3 or <000/mm3 or 10% immature neutrophils [] Heart Rate > 90 [] Respiratory Rate > 20 [] Fever or hypothermia [] Chills [] Positive blood cultures [] Hypotension [] Metabolic acidosis (Elevated lactate level, anion gap or reduced blood pH) [] Acute confusion /Altered Mental Status [] Shock [X] Other: [The ER documentation states the patient also has sepsis. Please clarify if you agree, disagree, or are uncertain. ] Location in the medical record that reflects the above clinical findings: [] Treatment Provided: [] PHYSICIAN'S RESPONSE Based on your medical judgment of the clinical indicators outlined above, are you treating this patient for a known or suspected: [] Sepsis / Septicemia Please specify organism if known [] [] SIRS (Systemic Inflammatory Response Syndrome) [] Severe Sepsis (Sepsis with Associated Organ Dysfunction) [] Fever of Unknown Origin [] Other, please indicate: [] [] If Unable to Determine, please check the box, sign and date. Present On Admission (POA) Indicator: [] Present at the time of admission [] Not present at the time of admission [] Clinically Undetermined In responding to this query, please exercise your independent professional judgment. The fact that a question is asked does not imply that any particular answer is desired or expected. Thank you for your clarification on this documentation. If you have any questions please call:[ ] * Thank you, [Marlys Luciano ] senior behavioral scientist [facility]
== END 2016-06-05 12:50 | disposition home or self-care (01) | DRG 871 ==
LOC: H.ER 09:21 → H.ERHOLD 11:53 → H.ICU/CCU 14:19 → H.MEDSURG1 06-03 16:21
PROVIDERS: ADMIT Internal Medicine Pulmonary Disease; ATTEND Internal Medicine Pulmonary Disease
DX: A41.9 Sepsis, unspecified organism (principal); J18.9 Pneumonia, unspecified organism; J96.90 Respiratory failure, unspecified, unspecified whether with hypoxia or hypercapnia; G30.9 Alzheimer's disease, unspecified; F02.80 Dementia in other diseases classified elsewhere, unspecified severity, without behavioral disturbance, psychotic disturbance, mood disturbance, and anxiety; J43.9 Emphysema, unspecified; J45.909 Unspecified asthma, uncomplicated; I10 Essential (primary) hypertension; F17.200 Nicotine dependence, unspecified, uncomplicated